=== PATIENT | male | born 1990 | race Caucasian/White ===

== ENCOUNTER 2017-07-23 13:16 | Emergency (ER) | payer SELFPAY ==
[2017-07-23 13:32] VITALS: TEMP 99.2
--- NOTE | 2017-07-23 13:51 | ED.PDOC ---
History of Present Illness - General Chief Complaint: Fever Stated Complaint: fever, cough Time Seen by Provider: 07/23/17 13:48 Source: patient Exam Limitations: no limitations - History of Present Illness Initial Comments: The patient is a 27-year-old male presenting to the emergency room with symptoms consistent with influenza. Adenovirus has been prevalent in the population as well. Due to a shortage we have no test for influenza. The patient is having a mild sore throat and mild runny nose and mild cough a significant headache some mild abdominal discomfort some mild nausea he has thrown up a couple of times he is having generalized body aches. He does not have any immune system problems that he knows of. No point abdominal pain. No vomiting of blood or bile. He has had multiple sick contacts.ymptoms started 3 days ago. Severity: moderate Improving Factors: nothing Worsening Factors: nothing Associated Symptoms: cough, fever/chills, loss of appetite, malaise, nausea/ vomiting Allergies/Adverse Reactions: Allergies NO KNOWN ALLERGY Allergy (Verified 07/23/17 13:32) Home Medications: Ambulatory Orders Ondansetron [Zofran Odt] 4 mg PO Q4H PRN #10 tab 07/23/17 Oseltamivir Capsule [Tamiflu] 75 mg PO BID 5 Days #10 capsule 07/23/17 Review of Systems - Review of Systems Constitutional: States: chills, fever, malaise EENTM: States: nose congestion, throat pain Respiratory: States: cough Cardiology: States: no symptoms reported Gastrointestinal/Abdominal: States: nausea Genitourinary: States: no symptoms reported Musculoskeletal: States: other - generalized body aches Skin: States: no symptoms reported Neurological: States: headache Endocrine: States: no symptoms reported All other Systems: No Change from Baseline Past Medical History (General) - Patient Medical History Hx Asthma: No Hx Congestive Heart Failure: No Hx Hypertension: No Hx Diabetes: No Surgical History: no surgical history - Vaccination History Hx Influenza Vaccination: No - Social History Hx Tobacco Use: No Hx Alcohol Use: No Hx Substance Use: No Hx Substance Use Treatment: No Hx Depression: No Family Medical History - Family History Mother Family History: Unknown Physical Exam - Physical Exam General Appearance: Alert, No apparent distress Eye Exam: right normal, left other - 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 Ears, Nose, Throat: hearing grossly normal, nasal congestion, pharyngeal erythema Neck: non-tender, full range of motion Respiratory: lungs clear, normal breath sounds, no respiratory distress, no accessory muscle use Cardiovascular/Chest: normal peripheral pulses, regular rate, rhythm, no edema Peripheral Pulses: radial,right: 2+, radial,left: 2+, dorsalis pedis,right: 2+, dorsalis pedis,left: 2+ Gastrointestinal/Abdominal: normal bowel sounds, non tender, soft Rectal Exam: deferred Back Exam: normal inspection, no CVA tenderness, no vertebral tenderness Extremity: normal range of motion, non-tender, normal inspection, no pedal edema , normal capillary refill Neurologic: director of rehabilitation and wellness II-XII nml as tested - ith the exception from changes from his previous trauma, alert, normal mood/affect, oriented x 3 Skin Exam: normal color Comments: Vital Signs - 24 hr 07/23/17 13:25 Temperature 99.2 F Pulse Rate [ 77 pulse ox] Respiratory 20 Rate Blood Pressure 126/73 [Left Arm] O2 Sat by Pulse 97 Oximetry Progress - Progress Progress: 07/23/17 13:52 the patient is 27-year-old male presenting with symptoms consistent with a viral syndrome possibly the flu. secondary to shortage we do not have a test to test him. The virus is significantly present within the community. The patient will be placed empirically on Tamiflu. He will also be written for Zofran as needed to help control any nausea and vomiting. He needs to keep himself well hydrated. He needs to take Motrin 800 mg 3 times a day with food as well. ER warnings were given for any worsening. He should follow-up with his primary care doctor in 2 days. Departure - Departure Clinical Impression: Flu-like symptoms Disposition: Discharge to Home or Self Care Condition: Fair Departure Forms: ED Discharge - Pt. Copy, Patient Portal Self Enrollment Instructions: Influenza Diet: regular diet Activity: increase activity as tolerated Prescriptions: Ondansetron [Zofran Odt] 4 mg PO Q4H PRN #10 tab PRN Reason: Vomiting Oseltamivir Capsule [Tamiflu] 75 mg PO BID 5 Days #10 capsule Home Medications: Ambulatory Orders Ondansetron [Zofran Odt] 4 mg PO Q4H PRN #10 tab 07/23/17 Oseltamivir Capsule [Tamiflu] 75 mg PO BID 5 Days #10 capsule 07/23/17 Additional Instructions: the patient is 27-year-old male presenting with symptoms consistent with a viral syndrome possibly the flu. secondary to shortage we do not have a test to test him. The virus is significantly present within the community. The patient will be placed empirically on Tamiflu. He will also be written for Zofran as needed to help control any nausea and vomiting. He needs to keep himself well hydrated. He needs to take Motrin 800 mg 3 times a day with food as well. ER warnings were given for any worsening. He should follow-up with his primary care doctor in 2 days.
[2017-07-23 14:06] VITALS: BP 132/78; O2SAT 96
== END 2017-07-23 14:03 | disposition home or self-care (01) ==
LOC: ER 13:16
DX: J02.9 Acute pharyngitis, unspecified (principal); R05 Cough